=== PATIENT | female | born 1960 | race Hispanic/Latino ===

== ENCOUNTER → 2018-03-22 | Outpatient (CLI) | payer OTHER, MEDICARE | END | disposition home or self-care (01) | LOC: RAH 08:39 | PROVIDERS: ATTEND Internal Medicine | DX: N28.1 Cyst of kidney, acquired (principal); R93.2 Abnormal findings on diagnostic imaging of liver and biliary tract | CPT/HCPCS: 76700 ==

== ENCOUNTER → 2018-06-15 | Outpatient (CLI) | payer OTHER, MEDICARE | END | disposition home or self-care (01) | LOC: RAH 10:48 | PROVIDERS: ATTEND Internal Medicine | DX: R14.0 Abdominal distension (gaseous) (principal); K29.70 Gastritis, unspecified, without bleeding | CPT/HCPCS: 78264; A9541 ==

== ENCOUNTER → 2018-07-18 | Outpatient (CLI) | payer MEDICARE ==
[~2018-07-18] MED LIST: IOHEXOL 350 MG/ML 100ML INFUS..BTL IV ONE
== END | disposition home or self-care (01) ==
LOC: OIH 10:31
PROVIDERS: ATTEND Internal Medicine Gastroenterology
DX: K57.90 Diverticulosis of intestine, part unspecified, without perforation or abscess without bleeding (principal); M47.815 Spondylosis without myelopathy or radiculopathy, thoracolumbar region; N28.1 Cyst of kidney, acquired; N32.89 Other specified disorders of bladder; I70.90 Unspecified atherosclerosis
CPT/HCPCS: 74178; Q9967

== ENCOUNTER → 2024-01-09 | Outpatient (CLI) | payer OTHER | END | disposition home or self-care (01) | LOC: RAH 13:46 | PROVIDERS: ATTEND Internal Medicine Cardiovascular Disease | DX: Z13.6 Encounter for screening for cardiovascular disorders (principal) | CPT/HCPCS: 75571 ==

== ENCOUNTER → 2024-11-22 | Outpatient (CLI) | payer OTHER, MEDICAID ==
[2024-11-22] MEDS: REGADENOSON 0.4 MG/5 ML PF SYG IVP ONE (11:10)
== END | disposition home or self-care (01) ==
LOC: SHCH 08:40
PROVIDERS: ATTEND Internal Medicine Cardiovascular Disease
DX: I11.9 Hypertensive heart disease without heart failure (principal); R23.2 Flushing
CPT/HCPCS: 78452; 93017; J2785; A9500 ×2

== ENCOUNTER 2025-01-12 20:12 | Inpatient (IN) | payer OTHER, MEDICAID ==
[~2025-01-12] VITALS: Ht 147.3 cm; Wt 64.7 kg
--- NOTE | 2025-01-12 20:30 | EKG ---
[facility] Test Date: 2025-01-12 Test Time: 20:26:46 Pat Name: ANGELES CONRAD Department: ED Room: 421 Gender: F Junior Net Developer: [id number] : 1960 Requested By: DOROTHY BRASWELL Order Number: [id number] Reading MD: Tommy Doshi Measurements Intervals [place] Rate: 83 P: 42 VA: 138 QRS: 63 QRSD: 92 T: 29 QT: 370 QTc: 436 Interpretive Statements Sinus rhythm Nonspecific STT abnormality No previous ECG available for comparison Electronically Signed On 01-13-2025 11:08:36 CDT by Tommy Doshi Please click the below link to view image of tracing.
[2025-01-12 20:58] LABS: APPEARANCE,URINE CLEAR (CLEAR); GLUCOSE, URINE (UA) NEGATIVE (NEGATIVE); LEUKOCYTE ESTERASE ,URINE NEGATIVE Leu/uL (NEGATIVE); NITRATE,URINE NEGATIVE (NEGATIVE); OCCULT BLOOD,URINE NEGATIVE (NEGATIVE)
[2025-01-12 21:00] LABS: IMMATURE GRANULOCYTE ABSOLUTE 0.01 K/uL (0-1); NUCLEATED RED BLOOD CELLS 0.0 % (0.0-0.19); PLATELET COUNT (AUTO) 235 K/uL (130-400); RED BLOOD CELL COUNT(AUTO) 4.20 MIL/uL (4.00-5.50); RED CELL DISTRIBUTION WIDTH 12.5 % (11.0-15.5); WHITE BLOOD COUNT (AUTO) 6.7 K/uL (4.8-10.8)
[2025-01-12 21:07] LABS: ADD UA MICROSCOPIC NO
[2025-01-12 21:11] LABS: CREATININE 1.0 mg/dL (0.5-1.0); GLOMERULAR FILTR. RATE CALC 63.0 mL/min (>90); GLUCOSE,RANDOM 106.0 mg/dL (70-105); SODIUM SERUM 141.0 mmol/L (136-145); UREA NITROGEN, BLOOD 23.0 mg/dL (7-18)
[2025-01-12 21:20] LABS: ASPARTATE AMINOTRANSFERASE 24.0 U/L (10-37); CREATINE KINASE, TOTAL 65.0 U/L (21-232); TOTAL PROTEIN, SERUM 6.7 g/dL (6.0-8.3)
[2025-01-12] MEDS: 0.9% NACL 500ML IV.SOLN 500 ML IV ONE (21:23)
[2025-01-12] MEDS ORDERED: IOHEXOL-350 75 ML VIAL IV ONE (21:48)
--- NOTE | 2025-01-12 22:47 | HMCIMG ---
EXAM: CT Abdomen and Pelvis with IV Contrast CLINICAL HISTORY: The patient presents with right lower quadrant abdominal pain. TECHNIQUE: Axial computed tomography images of the abdomen and pelvis with intravenous contrast. CONTRAST: Administered intravenously. COMPARISON: Compared to prior CT abdomen and pelvis dated July 18, 2018. FINDINGS: LUNG BASES: The lung bases appear clear. No pleural effusions are seen. LIVER: The liver is enlarged measuring approximately 17.4 cm in craniocaudal span. A subcapsular calcified granuloma measuring 0.5 cm is seen in the right lobe. GALLBLADDER AND BILE DUCTS: The gallbladder appears within normal limits. No radioopaque gallstones are seen. No biliary ductal dilatation is evident. PANCREAS: Unremarkable. SPLEEN: Unremarkable. ADRENAL GLANDS: Unremarkable. KIDNEYS, URETERS, AND BLADDER: There is a left renal cyst in the interpolar region measuring 1.2 x 1.2 x 1.2 cm. No hydronephrosis or hydroureter. 0.3 cm calculus in the lower calyx of the right kidney. The urinary bladder is incompletely distended at the time of examination, limiting evaluation for wall thickening. In the appropriate clinical setting, mild cystitis cannot be excluded. STOMACH AND BOWEL: Colonic diverticulosis without evidence of diverticulitis. Unremarkable appearance of the stomach and small bowel. No evidence of bowel obstruction. No evidence suggesting enteritis or colitis. APPENDIX: The appendix appears thickened measuring approximately 1.2 cm with an appendicolith at the base measuring approximately 0.6 cm, along with minimal periappendiceal fat stranding, concerning for acute appendicitis. PERITONEUM: No free fluid. No free air. LYMPH NODES: No lymphadenopathy is evident. REPRODUCTIVE: The uterus and both ovaries are unremarkable. VASCULATURE: No evidence of abdominal aortic aneurysm. BONES: Multilevel mild degenerative changes in the spine. No acute osseous pathology is evident. IMPRESSION: Acute appendicitis is evident. This is a new finding compared to the previous CT dated 07/18/2018. The remaining findings are grossly unchanged. Hepatomegaly with a subcapsular hepatic calcified granuloma in the right lobe. Non-obstructive right renal calculus. Left renal interpolar cyst. Colonic diverticulosis without diverticulitis. Incompletely distended urinary bladder; cystitis cannot be excluded. Recommend clinical correlation. /[employer]
--- NOTE | 2025-01-12 23:07 | NUR ---
TRANSFERED CARE TO [facility] AT THIS TIME
--- NOTE | 2025-01-12 23:12 | HP ---
History of Present Illness Reason for Visit: abdominal pain History of Present Illness Ms. Chase is a 64-year-old female that was seen and examined today on 01/12/2025. Patient is a good historian of personal health Patient reports that she came to the emergency department with a chief complaint of abdominal pain. Onset was three days ago. Location is right lower quadrant and right upper quadrant. Duration is on and off. Character is described as, initially was like burning and over the last three days as progressed into cramping. There was no alleviating factors. Symptoms are aggravated with movement. Patient reports associated nausea without vomiting. Today in the emergency department labs are unremarkable, CT of abdomen and pelvis shows acute appendicitis. Emergency room physician consulted general surgeon on-call, Dr. Alexandra who requested patient be admitted under hospitalist service. Past Medical History ADDITIONAL PAST MEDICAL HISTORY: [Hypertension] SOCIAL HISTORY: [Negative for smoking, alcohol use, drug use. Patient lives with the mother, Crystal Will. Patient is typically independent of all her ADLs. Patient denies difficulty paying her bills.] SURGICAL HISTORY: [BTL, BTL reversal, section x2] Review of Systems General: No Fever, No Chills, No Night Sweats, No Fatigue, No Malaise, No Appetite, No Other HEENT: No Head Aches, No Visual Changes, No Eye Pain, No Ear Pain, No Dysphasia, No Sinus Congestion, No Post Nasal Drip, No Sore Throat, No Other Pulmonary: No Dyspnea, No Cough, No Pleuritic Chest Pain, No Other Cardiovascular: No: Chest Pain, Palpitations, Orthopnea, Paroxysmal Noc. Dyspnea, Edema, Lt Headedness, Other Gastrointestinal: Nausea, Abdominal Pain; No: Vomiting, Diarrhea, Constipation, Melena, Hematochezia, Other Genitourinary: No Dysuria, No Frequency, No Incontinence, No Hematuria, No Re tention, No Other Musculoskeletal: No: other, neck pain, shoulder pain, arm pain, back pain, hand pain, leg pain, foot pain Skin: No Urticaria, No Rash, No Other Neurological: No: Weakness, Numbness, Incoordination, Change in speech, Confusion, Seizures, Other Allergies: Coded Allergies: No Known Allergies (Unverified Allergy, Unknown, 01/12/25) No Active Prescriptions or Reported Meds Exam Vital Signs Vital Signs Date Time Temp Pulse Resp B/P (MAP) Pulse Ox O2 Delivery O2 Flow Rate FiO2 01/12/25 20:13 97.7 86 16 132/77 98 Room Air General Appearance: Alert, Oriented X3, Cooperative, No acute distress HEENT: Atraumatic, PERRLA, EOMI Respiratory: Clear to auscultation, Normal air movement, NL respiratory effort Cardiovascular: Regular rate, Regular rhythm, Normal S1, Normal S2 Abdominal: Normal bowel sounds, Soft, Other (Positive right lower quadrant tenderness) Extremities: No edema Skin: No significant lesion Neuro: Normal gait, Normal speech, Strength at 5/5 X4 ext, Sensation intact, Cranial nerves 3-12 NL Psych/Mental Status: Mental status NL, Mood NL, Thoughts/Content NL Assessment/Plan ASSESSMENT: [ Acute appendicitis, POA Hypertension] PLAN: [ Admit patient to medical floor as inpatient status. Patient will be followed by General surgery Service, Dr. Alexandra Keep patient NPO Check preprocedure labs, CBC, BMP, magnesium, phosphorus, PTT, UA, type and screen, EKG, CXR IV fluid maintenance therapy lactated Ringer's 75 mL/HR Empiric antibiotic therapy with Zosyn As needed analgesia with morphine Consider restarting home medications once they have been reconciled and patient is no longer NPO At time of admission home medications not been reconciled. For now: Hydralazine 10 mg IV every 4 hours for systolic blood pressure greater than 160 mmHg GI prophylaxis, famotidine DVT prophylaxis, Marcos's and SCDs avoid anticoagulation at this time due to impending surgical evaluation ADVANCED CARE PLANNING 1. Which of the following were discussed? Hospice Care - Yes Therapeutic options - yes Advance Directives - Yes - patient states he does not have any advance directives in place at this time, however her mother can make decisions for her if she becomes unable Other discussions - patient wishes to remain a full code 2. Discussed with who? Patient 3. Voluntary nature of this service was explained to the patient? Yes 4. Amount of time spent - ___16 minutes____ 5. Reviewed by Physician? (if this service was performed by NPP) Yes This document was generated in part using voice recognition software, occasional wrong word or sound alike substitutions may have occurred due to the inherent limitations of voice recognition software. Read the chart carefully and recognize using context, where the substitutions have occurred. Although every effort was made to edit the content, service station operator and typing errors may occur ATTESTATION BY PHYSICIAN I have seen and examined the patient. I reviewed the documentation, medical decision making, and treatment plan as noted by the mid-level provider above. I agree with the findings and plan of care. JOANNE MERRITT [facility] Jan 12, 2025 23:11
[2025-01-12] MEDS: LACTATED RINGERS 1000ML 1,000 ML IV SCH (23:30)
[2025-01-12] MEDS: ZOSYN 3.375GM +NS 50ML IV SCH (23:30)
--- NOTE | 2025-01-12 23:55 | ERN ---
ED Note History of Present Illness Stated Complaint: ACUTE APPENDICITIS Chief Complaint: Abdominal Pain Time Seen by MD: 20:13 Time Seen by Midlevel: 20:13 Dictation: The patient is a 64-year-old female with a history of hypertension, who presents to the emergency department with complaints of right upper and right lower abdominal pain onset . Patient reports nonbloody diarrhea yesterday. Denies any nausea or vomiting. Denies any fevers. Patient reports that she was picking up some heavy objects on and thinks that is what caused her pain. Reports she was seen by her primary doctor on Tuesday and told her it was muscular pain but patient reports no improving in pain. Allergies: Coded Allergies: No Known Allergies (Unverified Allergy, Unknown, 01/12/25) Past Medical History Past Medical History: Hypertension Surgical History: BTL, RN Note Reviewed/Agreed w/PFSH: Yes Review of System Dictation Constitutional: Negative for fever,chills, and weight loss Eyes: Negative for injury, pain,redness, and discharge ENT: Negative for injury,pain or swelling Cardiovascular: Negative for chest pain, palpitations, and edema Respiratory: Negative for shortness of breath, cough, and wheezing, Abdomen/GI: Negative for nausea, vomiting, and constipation positive for abdominal pain, diarrhea Back: Negative for injury and pain : Negative for injury, bleeding and discharge MS/Extremity: Negative for injury and deformity Skin: Negative for rash, and discoloration Neuro: Negative for headache, weakness, numbness, tingling, and seizure Psych: Negative for suicide ideation, homicidal ideation, and hallucinations Initial Vital Sign VS Vital Signs Date Time Temp Pulse Resp B/P (MAP) Pulse Ox O2 Delivery O2 Flow Rate FiO2 01/12/25 20:13 97.7 86 16 132/77 98 Room Air Physical Exam Dictation Vital Signs reviewed General Appearance: Alert, oriented x 3, no acute distress, well developed, nourished. Head and Face: non-traumatic. Eyes: PERRL, pink conjunctivas, eyelid no trauma, anterior chamber with arcus senilis. Ears: Pinnas intact and no signs of trauma or erythema ear canals clear and no discharge TM no erythema Nose: No discharge, no bleeding. Oropharynx: Mouth normal, tongue pink. pharynx clear,no erythema, tonsils no exudates, no abscesses noted, mucous membrane moist Neck: Supple, non-tender, no thyromegaly, no masses, no JVD, no bruits Breast:Deferred Chest:No tenderness, no crepitus, no paradoxical movement, no retractions Lungs:Clear, well-ventilated, symmetric, no rales, no wheezing, no rhonchi, no stridor, good breath sounds bilaterally Heart: Regular rate, regular rhythm, no murmur, no gallops Vascular: no peripheral edema, Abdomen: Soft, positive bowel sounds, nondistended, no guarding, Right lower quadrant tenderness, no rebound, no masses no hepatomegaly, no s plenomegaly, no Dover's sign, no hernias. Rectal: Deferred Genital: Deferred Neurological: Normal speech, motor function intact, sensory function intact Musculoskeletal: Neck nontender, full range of motion, back nontender, full range of motion, Extremities: nontender, full range of motion Skin: Color pink, dry, no turgor, no rash, no lacerations, no abrasions, no contusions. Lymphatic: Deferred Results (Laboratory/Radiology) Laboratory/Radiology Laboratory Tests Test 01/12/25 20:22 01/12/25 20:28 Urine Color LIGHT-YELLOW (YELLOW) Urine Appearance CLEAR (CLEAR) Urine pH 6.0 (5.0-8.0) Urine Specific [place] 1.024 (1.001-1.031) Urine Protein NEGATIVE mg/dL (NEGATIVE) Urine Glucose (UA) NEGATIVE mg/dL (NEGATIVE) Urine Ketones NEGATIVE mg/dL (NEGATIVE) Urine Occult Blood NEGATIVE (NEGATIVE) Urine Nitrate NEGATIVE (NEGATIVE) Urine Bilirubin NEGATIVE mg/dL (NEGATIVE) Urine Urobilinogen 0.2 mg/dL (0.2-1.0) Urine Leukocyte Esterase NEGATIVE Liss/uL White Blood Count 6.7 K/uL (4.8-10.8) Red Blood Count 4.20 MIL/uL (4.00-5.50) Hemoglobin 13.2 g/dL (12.0-16.0) Hematocrit 39.9 % (36-48) Mean Corpuscular Volume 95.0 fL (79-99) Mean Corpuscular Hemoglobin 31.4 pg (27.0-33.0) Mean Corpuscular Hemoglobin Concent 33.1 g/dL (32.0-36.0) Red Cell Distribution Width 12.5 % (11.0-15.5) Platelet Count 235 K/uL (130-400) Mean Platelet Volume 11.5 fL (7.5-10.5) H Immature Granulocyte % (Auto) 0.1 % (0-1) Neutrophils (%) (Auto) 56.6 % (40.0-77.0) Lymphocytes (%) (Auto) 31.7 % (21.0-51.0) Monocytes (%) (Auto) 6.6 % (3.0-13.0) Eosinophils (%) (Auto) 4.0 % (0.0-8.0) Basophils (%) (Auto) 1.0 % (0.0-5.0) Neutrophils # (Auto) 3.8 K/uL (1.8-7.7) Lymphocytes # (Auto) 2.1 K/uL (1.0-4.8) Monocytes # (Auto) 0.4 K/uL (0.1-1.0) Eosinophils # (Auto) 0.27 K/uL (0.00-0.70) Basophils # (Auto) 0.07 K/uL (0.00-0.20) Absolute Immature Granulocyte (auto 0.01 K/uL (0-1) Nucleated Red Blood Cells 0.0 % (0.0-0.19) Sodium Level 141 mmol/L (136-145) Potassium Level 3.9 mmol/L (3.5-5.1) Chloride Level 106 mmol/L (101-111) Carbon Dioxide Level 26 mmol/L (21-32) Blood Urea Nitrogen 23 mg/dL (7-18) H Creatinine 1.0 mg/dL (0.5-1.0) Glomerular Filtration Rate Calc 63 mL/min (>90) Random Glucose 106 mg/dL (70-105) H Total Calcium 8.9 mg/dL (8.5-10.1) Total Bilirubin 0.3 mg/dL (0.2-1.0) Direct Bilirubin 0.1 mg/dL (0.0-0.3) Aspartate Amino Transf (AST/SGOT) 24 U/L (10-37) Alanine Aminotransferase (ALT/SGPT) 36 U/L (12-78) Alkaline Phosphatase 135 U/L (50-136) Total Creatine Kinase 65 U/L (21-232) # Troponin I High Sensitivity 4 ng/L (4-50) Total Protein 6.7 g/dL (6.0-8.3) Albumin 3.5 g/dL (3.5-5.0) Lipase 35 U/L (16-77) REASON: Abdominal Pain, rlq ORDERING PHYSICIAN: DOROTHY BRASWELL PROCEDURE: ABD PEL W - CT ABDOMEN/PELVIS W/CONTRAST ADDENDUM REPORT ADDENDUM: Results were shared by telephone at 11:52pm on 01/12/25 and acknowledged by Janis Arreola /[place] EXAM: CT Abdomen and Pelvis with IV Contrast CLINICAL HISTORY: The patient presents with right lower quadrant abdominal pain. TECHNIQUE: Axial computed tomography images of the abdomen and pelvis with intravenous contrast. CONTRAST: Administered intravenously. COMPARISON: Compared to prior CT abdomen and pelvis dated July 18, 2018. FINDINGS: LUNG BASES: The lung bases appear clear. No pleural effusions are seen. LIVER: The liver is enlarged measuring approximately 17.4 cm in craniocaudal span. A subcapsular calcified granuloma measuring 0.5 cm is seen in the right lobe. GALLBLADDER AND BILE DUCTS: The gallbladder appears within normal limits. No radioopaque gallstones are seen. No biliary ductal dilatation is evident. PANCREAS: Unremarkable. SPLEEN: Unremarkable. ADRENAL GLANDS: Unremarkable. KIDNEYS, URETERS, AND BLADDER: There is a left renal cyst in the interpolar region measuring 1.2 x 1.2 x 1.2 cm. No hydronephrosis or hydroureter. 0.3 cm calculus in the lower calyx of the right kidney. The urinary bladder is incompletely distended at the time of examination, limiting evaluation for wall thickening. In the appropriate clinical setting, mild cystitis cannot be excluded. STOMACH AND BOWEL: Colonic diverticulosis without evidence of diverticulitis. Unremarkable appearance of the stomach and small bowel. No evidence of bowel obstruction. No evidence suggesting enteritis or colitis. APPENDIX: The appendix appears thickened measuring approximately 1.2 cm with an appendicolith at the base measuring approximately 0.6 cm, along with minimal periappendiceal fat stranding, concerning for acute appendicitis. PERITONEUM: No free fluid. No free air. LYMPH NODES: No lymphadenopathy is evident. REPRODUCTIVE: The uterus and both ovaries are unremarkable. VASCULATURE: No evidence of abdominal aortic aneurysm. BONES: Multilevel mild degenerative changes in the spine. No acute osseous pathology is evident. IMPRESSION: Acute appendicitis is evident. This is a new finding compared to the previous CT dated 07/18/2018. The remaining findings are grossly unchanged. Hepatomegaly with a subcapsular hepatic calcified granuloma in the right lobe. Non-obstructive right renal calculus. Left renal interpolar cyst. Colonic diverticulosis without diverticulitis. Incompletely distended urinary bladder; cystitis cannot be excluded. Recommend clinical correlation. /[employer] [facility] Reviewed?: Yes EKG: (+) rhythm (Sinus rhythm) EKG Comment: Date:01/12/2025 Time:2025 Ventricular rate:83 TN interval:138 QRS duration:92 QT/QTc:370/436 EKG interpretation: Sinus rhythm Reviewed by ED Attending no STEMI ED Course ED Course Orders Procedure Category Date Status Time Cbc With Differential LAB 01/12/25 Complete 20:21 Troponin I High LAB 01/12/25 Complete Sensitivity 20:21 Urinalysis Profile LAB 01/12/25 Complete 20:21 12 Lead Ekg Tracing- EKG 01/12/25 Complete Technical 20:21 Creatine Kinase, Total LAB 01/12/25 Complete 20:21 Lipase LAB 01/12/25 Complete 20:21 Basic Metabolic Panel LAB 01/12/25 Complete 20:21 Hepatic Function Panel LAB 01/12/25 Complete 20:21 Ct Abdomen/Pelvis CT 01/12/25 Resulted W/Contrast 21:16 0.9% Nacl 500ml PHA 01/12/25 Complete Iv.Soln (Ns 500ml 21:30 Iohexol (Omnipaque) PHA 01/12/25 Complete 21:48 Obtain Consent For: CPOE 01/12/25 Transmitted 23:00 General Surgery CONPHYSVC 01/12/25 Transmitted Consult 23:07 Keep Patient Npo CPOE 01/12/25 Transmitted 23:07 Basic Metabolic Panel LAB 01/13/25 In Process 04:00 Cbc With Differential LAB 01/13/25 In Process 04:00 Magnesium LAB 01/13/25 In Process 04:00 Phosphorus LAB 01/13/25 In Process 04:00 Pt And Ptt LAB 01/13/25 In Process 04:00 Type And Screen BBK 01/13/25 In Process 04:00 Blood Cult SOHEILA 01/12/25 Logged 23:07 Activity: Ad Kajal CPOE 01/12/25 Transmitted 23:07 Apply Knee High Teds CPOE 01/12/25 Transmitted 23:07 Apply Scds CPOE 01/12/25 Transmitted 23:07 Condition: CPOE 01/12/25 Transmitted 23:07 Nurse To Enter Home CPOE 01/12/25 Transmitted Medication 23:07 Oxygen By Nc/Pulse Ox CPOE 01/12/25 Transmitted 23:07 Vital Signs(Adult CPOE 01/12/25 Transmitted Hospitalist) 23:07 Acetaminophen 650mg PHA 01/12/25 In Process Supp (Tylenol 650mg 23:30 Ondansetron 4mg Inj PHA 01/12/25 In Process (Zofran 4mg Inj) 23:30 Lactated Ringers PHA 01/12/25 In Process 1000ml (Lactated 23:30 Hydralazine 20mg Inj PHA 01/12/25 In Process (Apresoline 20mg In 23:30 Famotidine 20mg Vial PHA 01/13/25 In Process (Pepcid 20mg Vial) 09:00 Zosyn 3.375gm+Ns 50ml PHA 01/12/25 In Process (Zosyn 3.375gm+Ns 23:30 Chest 1vw RAD 01/12/25 Logged 23:07 Morphine 2mg Syg PHA 01/12/25 In Process (Morphine 2mg Syg) 23:30 Admit Orders ADM 01/12/25 Transmitted 23:34 Current Medications Medications (Trade) Dose Ordered Sig/Kennedy Route PRN Reason Start Time Stop Time Status Last Admin Dose Admin Iohexol (Omnipaque) 75 ml STK-MED ONCE IV 01/12/25 21:48 01/12/25 21:54 DC Sodium Chloride 500 ml @ 0 mls/hr ONCE ONCE IV 01/12/25 21:30 01/12/25 21:31 DC 01/12/25 21:23 Vital Signs Date Time Temp Pulse Resp B/P (MAP) Pulse Ox O2 Delivery O2 Flow Rate FiO2 01/12/25 20:13 97.7 86 16 132/77 98 Room Air Medical Decision Making [facility] MDM: The patient is a 64-year-old female with a history of hypertension, C- section who presents to the emergency department with complaints of right upper and right lower abdominal pain onset . Patient reports nonbloody diarrhea yesterday. Denies any nausea or vomiting. Denies any fevers. Patient reports that she was picking up some heavy objects on and thinks that is what caused her pain. Reports she was seen by her primary doctor on Tuesday and told her it was muscular pain but patient reports no improving in pain. CBC showed no leukocytosis, no anemia, chemistry showed no electrolyte imbalance, negative troponin, negative lipase, normal renal function, urinalysis unremarkable CT abdomen showed acute appendicitis, hepatomegaly nonobstructed right renal calculus. General surgery Dr. Alexandra was consulted for acute appendicitis. Patient will be admitted for further evaluation and treatment. Differential diagnosis: Abdominal wall pain, appendicitis, cholecystitis, ACS, gastritis Comorbidities: Hypertension Tests considered and not ordered secondary to shared decision making include: none Previous outside records reviewed: none Risk of complication and/or morbidity or mortality of patient management: The patient meets criteria for admission. Need for emergency major/minor surgery: No There are no social concerns with this patient. I independently interpreted the tests I ordered (labs, urinalysis, etc.). I discussed the case with the hospitalist for admission. Jose RUBIO who accepts admission I discussed the case with the following specialists: Dr. Nitin Alexandra who accepts consult Historian: sherri. I independently interpreted imaging studies and EKGs that I ordered (US, CT, XR, EKG, etc.). External chart review: none. Medical management and examination interpretation discussions were had by me with other qualified healthcare professionals as indicated for the patient's care. DX & DISP Disposition: Inpatient Decision to Admit Date: Jan 12, 2025 Decision to Admit Time: 23:55 Departure Impression: Primary Impression: Acute appendicitis Condition: Stable Referrals: EMILE OLIVO MD (PCP) I have reviewed the case, and I agree with, Diagnosis and Plan DOROTHY BRASWELL Jan 12, 2025 23:55
[2025-01-13] VITALS (29 sets, daily range): BP systolic 112–169; BP diastolic 59–87; PULSE 57–82; RESP 15–19; TEMP 97.3–98.2; O2SAT 95–98
--- NOTE | 2025-01-13 00:30 | NUR ---
ADMIT PT ADMITTED TO ROOM 421, AAOX3. DENIES ANY ABDOMINAL PAINS AT THIS TIME. ADMISSION CARE DONE. PLACED IN BED COMFORTABLY. KEPT NPO FOR SX. SCD'S PLACED TO BLE. ADMISSION DATA BASE COMPLETED. PT CLAIMS SHE DOES NOT TAKE ANY MEDS AT HOME BESIDES OCCASIONAL TYLENOL FOR PAIN. ORIENTED TO ROOM AND UNIT. IN FOR MORE CARE AND MANAGEMENT. Addendum: 01/13/25 at 0206 by MOISES PAUL RN RN Amended: Links added.
[2025-01-13 02:36] LABS: IMMATURE GRANULOCYTE ABSOLUTE 0.01 K/uL (0-1); NUCLEATED RED BLOOD CELLS 0.0 % (0.0-0.19); PLATELET COUNT (AUTO) 211 K/uL (130-400); RED BLOOD CELL COUNT(AUTO) 3.99 MIL/uL (4.00-5.50); RED CELL DISTRIBUTION WIDTH 12.4 % (11.0-15.5); WHITE BLOOD COUNT (AUTO) 6.7 K/uL (4.8-10.8)
--- NOTE | 2025-01-13 02:40 | NUR ---
CONSENT HORN PLAYER IN TO DRAW BLOOD. CHARGE NURSE BRENT ASKED TO GET CONSENT FOR SX IN [place]. CONSENT SIGNED BY PT AND PLACED IN CHART.
[2025-01-13 02:46] LABS: INR 1.04 (0.85-1.15)
[2025-01-13 02:47] LABS: CREATININE 0.8 mg/dL (0.5-1.0); GLOMERULAR FILTR. RATE CALC 83.0 mL/min (>90); GLUCOSE,RANDOM 113.0 mg/dL (70-105); PHOSPHORUS 3.6 mg/dL (2.5-4.9); SODIUM SERUM 141.0 mmol/L (136-145); UREA NITROGEN, BLOOD 18.0 mg/dL (7-18)
--- NOTE | 2025-01-13 06:05 | NUR ---
MEDS AWAKENED PT FOR DUE MEDS. PT FRESHENED UP IN THE BATHROOM, REMOVED JEWELRY AND DENTURES. DUE MEDS ADMINISTERED. KEPT NPO FOR SX. FOR MORE CARE.
[2025-01-13] MEDS: FAMOTIDINE 20MG VIAL IV SCH (09:08)
--- NOTE | 2025-01-13 10:20 | NUR ---
PATIENT TAKEN DOWN FOR SURGERY. NO SIGNS OF DISTRESS NOTED. WILL GET THE ROOM READY FOR POST OP CARE.
[2025-01-13] MEDS ORDERED: MIDAZOLAM HCL 1 MG/ML 2ML VIAL ONE (11:16)
[2025-01-13] MEDS ORDERED: LIDOCAINE PF 100MG/5ML (2%) SYRINGE 5ML ONE (11:23)
--- NOTE | 2025-01-13 11:55 | CONS ---
GENERAL SURGERY CONSULTATION NOTE Date/Time Patient Seen: 01/13/2025 11:30 a.m. Requesting Physician: Hospitalist Reason for Consultation: Acute appendicitis History of Present Illness: 64-year-old female presents was admitted for acute appendicitis. She had a thr ee day history of worsening right lower quadrant abdominal pain. She has had some pain before that same area but thought it was constipation. She denies nausea, vomiting, fevers or chills. CT scan showed acute appendicitis that was not perforated but had a fecalith. Her white count was normal Past Medical History: Hypertension and fibromyalgia Past Surgical History: Two C-sections, tubal ligation and reversal of tubal ligation Family History: Noncontributory Social History: [Negative for smoking, alcohol use, drug use. Patient lives with the mother, Crystal Will. Patient is typically independent of all her ADLs. Patient denies difficulty paying her bills.] Current Medications Medications (Trade) Dose Ordered Sig/Kennedy Route Start Time Stop Time Status Last Admin Dose Admin Famotidine (Pepcid 20mg Vial) 20 mg DAILY IV 01/13/25 09:00 02/12/25 08:59 01/13/25 09:08 20 MG Lactated Ringer's 1,000 ml @ 75 mls/hr [id number] IV 01/12/25 23:30 02/11/25 23:29 01/12/25 23:30 75 MLS/HR Piperacillin Sod/ Tazobactam Sod (Zosyn 3.375gm+NS 50ml) 3.375 gm Q8H IV 01/12/25 23:30 01/22/25 23:29 01/13/25 06:05 3.375 GM Review of Systems: CONST: [No fever, fatigue, or weight changes.] EYES: [No recent vision problems.] ENT: [No congestion, ear pain, or sore throat.] C/V: [No chest pain, palpitations, or edema.] RESP: [No cough, congestion, wheezing or shortness of breath.] GI: [Positive for abdominal pain and constipation : [No incontinence or dysuria.] SKIN: [No rash.] NEURO: [No headache, focal numbness or weakness, dizziness, or seizures.] PSYCH: [No depression or anxiety.] HEME: [No abnormal bruising or bleeding.] LYMPH: [No swollen glands.] Physical Examination: GENERAL: [No acute distress.] HEAD: [Normal with no signs of head trauma.] EYES: [PERRLA, EOMI, conjunctiva and sclera normal.] ENT: [Hearing grossly intact, normal oropharynx.] NECK: [Supple without JVD. There is no tenderness, lymphadenopathy, or masses. No thyromegaly. Normal carotid upstrokes without bruits.] LUNGS: [Clear breath sounds bilaterally. There are right basilar rales one third of the way up the chest. No wheezes, or rhonchi.] HEART: [Normal rate and rhythm. Normal S1 and S2 without mumurs, gallop or rub.] VASC: [Peripheral pulses +2 bilaterally.] ABD: Soft, nondistended, right lower quadrant tenderness, no diffuse peritoneal signs : [Not examined] LYMPH: [No lymphadenopathy noted.] EXT: [No clubbing, cyanosis or edema.] SKIN: [No rashes or lesions noted.] NEURO: [Awake, alert, and oriented x3. No focal sensory or strength deficits noted.] Vital Signs (last 8hr) Date Time Temp Pulse Resp B/P (MAP) Pulse Ox O2 Delivery O2 Flow Rate FiO2 01/13/25 08:00 97.9 63 18 139/76 95 Room Air 01/13/25 08:00 95 Room Air* 0 21 01/13/25 04:00 97.5 59 16 134/78 99 Room Air 21 Laboratory: [ ] Hematology Labs: Test 01/13/25 02:18 Range/Units White Blood Count 6.7 4.8-10.8 K/uL Red Blood Count 3.99 L 4.00-5.50 MIL/uL Hemoglobin 12.8 12.0-16.0 g/dL Hematocrit 37.3 36-48 % Mean Corpuscular Volume 93.5 79-99 fL Mean Corpuscular Hemoglobin 32.1 27.0-33.0 pg Mean Corpuscular Hemoglobin Concent 34.3 32.0-36.0 g/dL Red Cell Distribution Width 12.4 11.0-15.5 % Platelet Count 211 130-400 K/uL Mean Platelet Volume 10.9 H 7.5-10.5 fL Immature Granulocyte % (Auto) 0.2 0-1 % Neutrophils (%) (Auto) 55.3 40.0-77.0 % Lymphocytes (%) (Auto) 33.3 21.0-51.0 % Monocytes (%) (Auto) 6.2 3.0-13.0 % Eosinophils (%) (Auto) 4.2 0.0-8.0 % Basophils (%) (Auto) 0.8 0.0-5.0 % Neutrophils # (Auto) 3.7 1.8-7.7 K/uL Lymphocytes # (Auto) 2.2 1.0-4.8 K/uL Monocytes # (Auto) 0.4 0.1-1.0 K/uL Eosinophils # (Auto) 0.28 0.00-0.70 K/uL Basophils # (Auto) 0.05 0.00-0.20 K/uL Absolute Immature Granulocyte (auto 0.01 0-1 K/uL Nucleated Red Blood Cells 0.0 0.0-0.19 % Chemistry Labs: Test 01/13/25 02:18 01/12/25 20:28 Range/Units Sodium Level 141 136-145 mmol/L Potassium Level 3.5 3.5-5.1 mmol/L Chloride Level 108 101-111 mmol/L Carbon Dioxide Level 25 21-32 mmol/L Blood Urea Nitrogen 18 7-18 mg/dL Creatinine 0.8 0.5-1.0 mg/dL Glomerular Filtration Rate Calc 83 >90 mL/min Random Glucose 113 H 70-105 mg/dL Total Calcium 8.5 8.5-10.1 mg/dL Phosphorus Level 3.6 2.5-4.9 mg/dL Magnesium Level 2.20 1.80-2.40 mg/dL Total Bilirubin 0.3 0.2-1.0 mg/dL Direct Bilirubin 0.1 0.0-0.3 mg/dL Aspartate Amino Transf (AST/SGOT) 24 10-37 U/L Alanine Aminotransferase (ALT/SGPT) 36 12-78 U/L Alkaline Phosphatase 135 50-136 U/L Total Creatine Kinase 65 # 21-232 U/L Troponin I High Sensitivity 4 4-50 ng/L Total Protein 6.7 6.0-8.3 g/dL Albumin 3.5 3.5-5.0 g/dL Lipase 35 16-77 U/L Coagulation Labs: Test 01/13/25 02:18 Range/Units Prothrombin Time 11.0 9.6-11.6 SEC Prothromb Time International Ratio 1.04 0.85-1.15 Activated Partial Thromboplast Time 30.1 26.3-35.5 SEC Diagnostics / Radiology: CT scan of the abdomen and pelvis showed Acute appendicitis with fecalith (no perforation) Assessment: 64-year-old with acute non perforated appendicitis Plan: NPO IV antibiotics We will take to the operating room now for laparoscopic appendectomy. I discussed the risks of the procedure including bleeding, infection, recurrent appendicitis, injury to surrounding viscera and possible open procedure ANKIT CAMACHO MD Jan 13, 2025 11:55
--- NOTE | 2025-01-13 12:25 | PN ---
[facility] PROGRESS NOTE Date of Service: Jan 13, 2025 Time of Service: 12:23 SUBJECTIVE: [ ] Patient reports that she came to the emergency department with a chief complaint of abdominal pain. Onset was three days ago. Location is right lower quadrant and right upper quadrant. Duration is on and off. Character is described as, initially was like burning and over the last three days as progressed into cramping. There was no alleviating factors. Symptoms are aggravated with movement. Patient reports associated nausea without vomiting. Today in the emergency department labs are unremarkable, CT of abdomen and pelvis shows acute appendicitis. Emergency room physician consulted general surgeon on-call, Dr. Alexandra who requested patient be admitted under hospitalist service. 01/13/25 patient is scheduled for appendectomy today. Encourage early ambulation and deep breathing exercise postprocedure. Denied chest pain or shortness for breath. REVIEW OF SYSTEMS CONSTITUTIONAL: Denies fevers, chills, or night sweats. No unintentional weight loss reported. NEUROLOGICAL: Denies headache, amaurosis fugax, motor weakness, sensory deficit, vertigo/spinning sensation, gait abnormalities, or tremors. ENT: No hearing loss, otalgia, otorrhea, rhinitis, rhinorrhea, hoarseness, or sore throat. CARDIOVASCULAR: Denies any exertional angina, dyspnea on exertion, orthopnea, paroxysmal nocturnal dyspnea, palpitations, life-threatening arrhythmias, claudication. PULMONARY: Denies any shortness of breath, cough, phlegm/sputum, hemoptysis, pleuritic chest pain. SLEEP: Denies morning headaches, daytime somnolence or napping. Denies difficulty falling asleep, staying asleep, waking from sleep. Denies knowledge of snoring. GASTROINTESTINAL: Denies any type of dysphagia to either liquids or solids. Denies nausea, vomiting, pyrosis, early satiety, abdominal pain, diarrhea, constipation, or changes in stool consistency or caliber. Denies coffee-ground emesis, hematemesis, hematochezia, or melanotic stools. GENITOURINARY: Denies frequency, urgency, nocturia, hematuria or incontinence (Storage/Irritative symptoms.) Low urinary stream, straining to void, urinary intermittency or hesitancy, splitting of the voiding stream, terminal dribbling. ENDOCRINOLOGIC: Denies polyuria, polydipsia, polyphagia or heat/cold intolerances. HEMATOLOGIC: Denies thrombophilia/previous clots, or coagulopathy/bleeding disorders. ONCOLOGIC: Denies personal history of malignancy. DERMATOLOGIC: Denies rashes or pruritus. PSYCHIATRIC: Denies any suicidal or homicidal ideation. Denies hallucinations. PHYSICAL EXAM GENERAL APPEARANCE: The patient is awake, alert, and oriented, in no acute cardiopulmonary distress. NEUROLOGICAL: Cranial nerves II-XII grossly intact. Motor is 5/5 in bilateral upper and lower extremities proximal to distal. No sensory deficits. HEENT: Face is symmetric. Pupils are equal and reactive. Extraocular movements are intact. NECK: Supple. No JVD. No thyromegaly. No submental, submandibular, pre- /postauricular, occipital or supraclavicular lymphadenopathy. CHEST: Normal chest expansion. No Telemetry. LUNGS: Absence of any rales, rhonchi or any wheezing. CARDIOVASCULAR: Regular. S1 and S2 normal. No appreciable rubs, murmurs or gallops. ABDOMEN: Soft, nontender, and nondistended. There is no rebound, voluntary guarding, or rigidity. : Deferred. No Nuñez. EXTREMITIES: Non-edematous and not cyanotic. No clubbing. Good capillary refill. SKIN: No skin breakdown. Vital Signs (last 8hr) Date Time Temp Pulse Resp B/P (MAP) Pulse Ox O2 Delivery O2 Flow Rate FiO2 01/13/25 08:00 97.9 63 18 139/76 95 Room Air 01/13/25 08:00 95 Room Air* 0 21 LABS: Laboratory: Test 01/13/25 02:18 01/12/25 20:28 01/12/25 20:22 Range/Units White Blood Count 6.7 4.8-10.8 K/uL Red Blood Count 3.99 L 4.00-5.50 MIL/uL Hemoglobin 12.8 12.0-16.0 g/dL Hematocrit 37.3 36-48 % Mean Corpuscular Volume 93.5 79-99 fL Mean Corpuscular Hemoglobin 32.1 27.0-33.0 pg Mean Corpuscular Hemoglobin Concent 34.3 32.0-36.0 g/dL Red Cell Distribution Width 12.4 11.0-15.5 % Platelet Count 211 130-400 K/uL Mean Platelet Volume 10.9 H 7.5-10.5 fL Immature Granulocyte % (Auto) 0.2 0-1 % Neutrophils (%) (Auto) 55.3 40.0-77.0 % Lymphocytes (%) (Auto) 33.3 21.0-51.0 % Monocytes (%) (Auto) 6.2 3.0-13.0 % Eosinophils (%) (Auto) 4.2 0.0-8.0 % Basophils (%) (Auto) 0.8 0.0-5.0 % Neutrophils # (Auto) 3.7 1.8-7.7 K/uL Lymphocytes # (Auto) 2.2 1.0-4.8 K/uL Monocytes # (Auto) 0.4 0.1-1.0 K/uL Eosinophils # (Auto) 0.28 0.00-0.70 K/uL Basophils # (Auto) 0.05 0.00-0.20 K/uL Absolute Immature Granulocyte (auto 0.01 0-1 K/uL Nucleated Red Blood Cells 0.0 0.0-0.19 % Prothrombin Time 11.0 9.6-11.6 SEC Prothromb Time International Ratio 1.04 0.85-1.15 Activated Partial Thromboplast Time 30.1 26.3-35.5 SEC Sodium Level 141 136-145 mmol/L Potassium Level 3.5 3.5-5.1 mmol/L Chloride Level 108 101-111 mmol/L Carbon Dioxide Level 25 21-32 mmol/L Blood Urea Nitrogen 18 7-18 mg/dL Creatinine 0.8 0.5-1.0 mg/dL Glomerular Filtration Rate Calc 83 >90 mL/min Random Glucose 113 H 70-105 mg/dL Total Calcium 8.5 8.5-10.1 mg/dL Phosphorus Level 3.6 2.5-4.9 mg/dL Magnesium Level 2.20 1.80-2.40 mg/dL Total Bilirubin 0.3 0.2-1.0 mg/dL Direct Bilirubin 0.1 0.0-0.3 mg/dL Aspartate Amino Transf (AST/SGOT) 24 10-37 U/L Alanine Aminotransferase (ALT/SGPT) 36 12-78 U/L Alkaline Phosphatase 135 50-136 U/L Total Creatine Kinase 65 # 21-232 U/L Troponin I High Sensitivity 4 4-50 ng/L Total Protein 6.7 6.0-8.3 g/dL Albumin 3.5 3.5-5.0 g/dL Lipase 35 16-77 U/L Urine Color LIGHT-YELLOW YELLOW Urine Appearance CLEAR CLEAR Urine pH 6.0 5.0-8.0 Urine Specific [place] 1.024 1.001-1.031 Urine Protein NEGATIVE NEGATIVE mg/dL Urine Glucose (UA) NEGATIVE NEGATIVE mg/dL Urine Ketones NEGATIVE NEGATIVE mg/dL Urine Occult Blood NEGATIVE NEGATIVE Urine Nitrate NEGATIVE NEGATIVE Urine Bilirubin NEGATIVE NEGATIVE mg/dL Urine Urobilinogen 0.2 0.2-1.0 mg/dL Urine Leukocyte Esterase NEGATIVE NEGATIVE Liss/uL Current Medications Medications (Trade) Dose Ordered Sig/Kennedy Route PRN Reason Start Time Stop Time Status Last Admin Dose Admin Acetaminophen (TYLenol 650MG SUPPOSITORY) 650 mg Q6H PRN RC MILD PAIN (1-3) 01/12/25 23:30 02/11/25 23:29 Famotidine (Pepcid 20mg Vial) 20 mg DAILY IV 01/13/25 09:00 02/12/25 08:59 01/13/25 09:08 20 MG Hydralazine HCl (APRESOLine 20MG INJ) 10 mg Q6H PRN IV For:SBP above 160;DBP above 90 01/12/25 23:30 02/11/25 23:29 Lactated Ringer's 1,000 ml @ 75 mls/hr [id number] IV 01/12/25 23:30 02/11/25 23:29 01/12/25 23:30 75 MLS/HR Morphine Sulfate (morPHINE 2MG SYG) 2 mg Q4H PRN IVP SEVERE PAIN (7-10) 01/12/25 23:30 01/19/25 23:29 Ondansetron HCl (zoFRAN 4MG INJ) 4 mg Q6H PRN IV NAUSEA/VOMITING 01/12/25 23:30 02/11/25 23:29 Piperacillin Sod/ Tazobactam Sod (Zosyn 3.375gm+NS 50ml) 3.375 gm Q8H IV 01/12/25 23:30 01/22/25 23:29 01/13/25 06:05 3.375 GM DIAGNOSTICS / RADIOLOGY: [ ] ASSESSMENT: Acute appendicitis, POA Hypertension] PLAN: [ ] Admit patient to medical floor as inpatient status. Consulted General surgery Service, Dr. Alexandra scheduled appendectomy Diet NPO and clears as tolerated IV fluids Hep-Lock postprocedure wants tolerating diet Continue Empiric antibiotic therapy with Zosyn Pain management analgesia with morphine we will add p.o. Tylenol No. 3 as needed Encourage early ambulation and deep breathing exercise. Out of bed to chair with meals GI prophylaxis, famotidine DVT prophylaxis, Marcos's and SCDs avoid anticoagulation at this time due to impending surgical evaluation ATTESTATION BY PHYSICIAN I have seen and examined the patient. I reviewed the documentation, medical decision making, and treatment plan as noted by the mid-level provider above. I agree with the findings and plan of care. Rosalia Dietrich MD, ELIZABETH NP Jan 13, 2025 12:25
[2025-01-13] MEDS ORDERED: GLYCOPYRROLATE 0.2 MG/ML 5 ML VIAL ONE (12:45)
[2025-01-13] MEDS ORDERED: NEOSTIGMINE METHYLSULFATE 1MG/ML IV ONE (12:45)
--- NOTE | 2025-01-13 12:53 | OP ---
Operative Note: DATE OF PROCEDURE: 01/13/25 SURGEON: ANKIT CAMACHO MD EM PHYSICIAN: Juan Carlos Smyth ANESTHESIA: General ANESTHESIOLOGIST/MINING AND QUARRYING MACHINERY REPAIRER: Keron GO PREOPERATIVE DIAGNOSIS: Acute appendicitis POSTOPERATIVE DIAGNOSIS: Acute appendicitis SYNOPSIS: Acute non perforated appendicitis, omental adhesions in the lower anterior abdominal wall PROCEDURE: Laparoscopic appendectomy, lysis of adhesions ESTIMATED BLOOD LOSS: 15 mL INDICATIONS FOR PROCEDURE: This is a 64-year-old female patient who presented with RLQ abdominal pain. CT scan of the abdomen and pelvis done showed appendicitis. Due to their symptoms, labs, clinical exam and imaging findings, a laparoscopic appendectomy was indicated. Informed consent was obtained prior to surgery. We discussed the risks of the procedure including but not limited to bleeding, wound infection, recurrent appendicitis, abscess, small bowel obstruction and injury to bowel. DESCRIPTION OF PROCEDURE: The patient was taken to the operating room and placed on the operating table in supine position. Next, general anesthesia was induced and they were intubated. A ochoa was placed to decompress the bladder. Their abdomen was prepped and draped in a sterile fashion. Afterwards, a time-out was called. The patient's identity, procedure, preoperative antibiotics and SCDs were all confirmed. I insufflated the abdominal cavity with a Veress needle. I gained access into the intra- abdominal cavity through a 5-mm left upper quadrant incision using a 5-mm Optiview port with a 5 mm 0-degree scope. I placed 2 additional ports in the following configuration: a 12-mm port in the left abdomen, and a 5-mm port in the suprapubic area. I inspected the abdominal cavity. She had omental adhesions in the lower abdominal wall that I had to take down with the LigaSure device. I placed an additional 5 mm port in the right upper quadrant to facilitate adhesiolysis. I saw an acutely inflammed appendix. The appendix was not perforated. I used a Chloe dissector to create a window at the base of the appendix. I stapled across the base of the appendix. I used a LigaSure to take down the mesoappendix. The appendix was placed in a specimen bag and removed from the body. It was sent off as specimen. The staple line was inspected. No active bleeding was seen. The fascia of the 12 mm port was closed with an 1-0 Vicryl suture using a Wolf-Amisha closure device. The pneumoperitoneum was evacuated. Skin incisions were closed with medardo. 0.25% Marcaine with epinephrine was injected into the incisions and sterile dressings were applied. Sponge, needle, instrument counts were accurate. The patient tolerated the procedure and was extubated and taken to recovery room in stable condition. ANKIT CAMACHO MD Jan 13, 2025 12:53
[2025-01-13] MEDS ORDERED: TRAM50TA4 PO (12:59)
[2025-01-13] MEDS ORDERED: LIDO1ADH71 TP (12:59)
[2025-01-13] MEDS ORDERED: SIME80TA13 PO (12:59)
[2025-01-13] MEDS: SIMETHICONE 80 MG TAB.CHEW PO SCH (13:00)
[2025-01-13] MEDS ORDERED: PoTASSium chl 10% ELIXIR 20MEQ 20 MEQ/15 ML UDCUP PO PRN (13:30)
--- NOTE | 2025-01-13 14:09 | NUR ---
REPORT TAKEN FROM CASSIDY RN. PATIENT ARRIVED BACK TO THE UNIT. NO SIGNS OF DISTRESS. PATIENT IS STILL DROWSY AT THIS TIME. POST OP VITALS STARTED. SCDS AND FLUIDS CONNECTED BACK TO PATIENT. VITALS STABLE AT THIS TIME. WILL MONITOR PATIENT.
--- NOTE | 2025-01-13 15:30 | NUR ---
PATIENT FULLY AWAKE TO START IS. CALLED TO RT AND NO ANSWER. WILL CONTINUE TO TRY AND REACH
--- NOTE | 2025-01-13 15:33 | NUR ---
PATIENT AMBULATED TO THE RESTROOM AND BACK TO BED. ENCOURAGED PATIENT TO TRY AND WALK TO THE DOOR AND BACK. PATIENT STATES SHES STILL A LITTLE DROWSY AND WILL TRY LATER.
--- NOTE | 2025-01-13 17:55 | NUR ---
PATIENT AMBULATED FROM BED TO RESTROOM. SECOND ATTEMPT TO ENCOURAGE PATIENT TO AMBULATE. PRE-MEDICATED THE PATIENT EARLIER SO SHE WOULDN'T BE IN SO MUCH PAIN AMBULATING. PATIENT STILL STATING THAT SHE IS DROWSY AND WILL TRY LATER.
[2025-01-13] MEDS: PoTASSium chloRIDE 20MEQ ER 20 MEQ ERTAB PO PRN (20:05)
--- NOTE | 2025-01-13 20:05 | NUR ---
MEDS PT IS UP AND AMBULATING IN THE ROOM, TOLERATING ACTIVITY WELL. CLAIMS SHE HAD NOT PASSED GAS NOR BURPED YET. COMPLAINTS OF POST OP PAINS. SHIFT ASSESSMENT DONE, PLEASE REFER TO CHART. MEDICATED WITH TORADOL IM FOR PAINS. DUE MEDS ADMINISTERED, TOLERATED WELL. PT TOLERATING CLEAR LIQUID DIET WELL. PLACED BACK ON IVF AND IV ABX INFUSION. ENCOURAGED AMBULATION. WILL RE-ASSESS PT.
--- NOTE | 2025-01-13 23:35 | NUR ---
IS CALLED RT, SPOKE WITH RODOLFO AND INFORMED NEED TO START IS ON PT. RODOLFO STATED WILL BRING IS TO PT.
[2025-01-14 03:56] VITALS: BP 141/81; PULSE 68; RESP 18; TEMP 98.4
--- NOTE | 2025-01-14 05:29 | NUR ---
ROUNDS PT RESTING IN BED. STILL NO PASSAGE OF GAS NOR BURPING REPORTED. CLAIMS OF MILD POST OP PAINS BUT DENIES NEED FOR ANALGESIA. KEPT RESTED AND COMFORTABLE IN BED. CALL LIGHT WITHIN REACH. FOR MORE CARE.
[2025-01-14 05:51] LABS: IMMATURE GRANULOCYTE ABSOLUTE 0.03 K/uL (0-1); NUCLEATED RED BLOOD CELLS 0.0 % (0.0-0.19); PLATELET COUNT (AUTO) 213 K/uL (130-400); RED BLOOD CELL COUNT(AUTO) 3.93 MIL/uL (4.00-5.50); RED CELL DISTRIBUTION WIDTH 12.2 % (11.0-15.5); WHITE BLOOD COUNT (AUTO) 8.9 K/uL (4.8-10.8)
[2025-01-14 06:06] LABS: ASPARTATE AMINOTRANSFERASE 21.0 U/L (10-37); CREATININE 0.8 mg/dL (0.5-1.0); GLOMERULAR FILTR. RATE CALC 83.0 mL/min (>90); GLUCOSE,RANDOM 113.0 mg/dL (70-105); SODIUM SERUM 138.0 mmol/L (136-145); TOTAL PROTEIN, SERUM 6.1 g/dL (6.0-8.3); UREA NITROGEN, BLOOD 8.0 mg/dL (7-18)
[2025-01-14 08:00] VITALS: O2SAT 98
--- NOTE | 2025-01-14 08:00 | NUR ---
ON INITIAL PAIN ASSESSMENT PATIENT STATES PAIN THAT RADIATES FROM LEFT UPPER QUADRANT TO LEFT SHOULDER. EDUCATED THE PATIENT ON THE IMPORTANCE OF AMBULATING POST OPERATIVELY. AFTER EDUCATING OFFERED PATIENT PAIN MEDICATION. PATIENT REFUSED. WILL MONITOR AND HELP CONTINUING TO EDUCATE THE PATIENT ON AMBULATING AND MONITOR PAIN.
[2025-01-14 08:16] VITALS: BP 121/88; PULSE 61; RESP 19; TEMP 98.3
[2025-01-14] MEDS: LIDOCAINE 4% ADH..PATCH TP SCH (09:00)
--- NOTE | 2025-01-14 09:45 | NUR ---
PATIENT AMBULATED FROM ROOM TO THE HALLWAY AND BACK TO ROOM.
--- NOTE | 2025-01-14 10:23 | NUR ---
PATIENT AMBULATING AROUND THE ROOM. PATIENT SAID SHE WAS GOING TO ASK HER SON TO BRING FOOD FROM THE OUTSIDE. EDUCATED PATIENT ON THE IMPORTANCE OF FOLLOWING HOSPITAL DIET REGIMEN. EXPLAINED WHY WE ADVANCE TOLERATED AND THAT SHE WOULD BE RECEIVING A SOFT BLAND DIET FOR LUNCH. PATIENT VERBALIZED UNDERSTANDING.
[2025-01-14 12:00] VITALS: BP 139/84; PULSE 75; RESP 19; TEMP 98.3
--- NOTE | 2025-01-14 13:59 | DS ---
Discharge Summary Hospital Course Summary: Patient reports that she came to the emergency department with a chief complaint of abdominal pain. Onset was three days ago. Location is right lower quadrant and right upper quadrant. Duration is on and off. Character is described as, initially was like burning and over the last three days as progressed into cramping. There was no alleviating factors. Symptoms are aggravated with movement. Patient reports associated nausea without vomiting. Today in the emergency department labs are unremarkable, CT of abdomen and pelvis shows acute appendicitis. Emergency room physician consulted general surgeon on-call, Dr. Camacho who requested patient be admitted under hospitalist service. 01/13/25 patient is scheduled for appendectomy today. Encourage early ambulation and deep breathing exercise postprocedure. Denied chest pain or shortness for breath. 01/14/2025 STATUS POST DAY ONE APPENDECTOMY PATIENT IS ELEVATING WITH PAIN TO INCISION SITE. PATIENT IS TOLERATING DIET NO NAUSEA NO VOMITING. PATIENT WE WILL BE DISCHARGED WITH LIDOCAINE PATCH TO BE APPLY POSTOPERATIVE INCISION AND TO CONTINUE WITH SIMETHICONE 80 MG P.O.4 TIMES A DAY FOR POSTOP GAS PAIN. PATIENT IS CLINICALLY STABLE ADVISED NO HEAVY LIFTING GREATER THAN 10 LB FOR FOUR WEEKS KEEP INCISIONS CLEAN AND DRY USE ABDOMINAL BINDER WHEN OUT OF BED. SHE WAS ALSO ADVISED TO CONTINUE IS USAGE WHILE AWAKE IN AMBULATION AT HOME. FOLLOW-UP WITH SURGEON ONE-WEEK Procedure(s): Operative Note: DATE OF PROCEDURE: 01/13/25 SURGEON: ANKIT CAMACHO MD HALL TENDER: Juan Carlos Smyth ANESTHESIA: General ANESTHESIOLOGIST/EASTERN PHILOSOPHY PROFESSOR: Keron GO PREOPERATIVE DIAGNOSIS: Acute appendicitis POSTOPERATIVE DIAGNOSIS: Acute appendicitis SYNOPSIS: Acute non perforated appendicitis, omental adhesions in the lower anterior abdominal wall PROCEDURE: Laparoscopic appendectomy, lysis of adhesions ESTIMATED BLOOD LOSS: 15 mL INDICATIONS FOR PROCEDURE: This is a 64-year-old female patient who presented with RLQ abdominal pain. CT scan of the abdomen and pelvis done showed appendicitis. Due to their symptoms, labs, clinical exam and imaging findings, a laparoscopic appendectomy was indicated. Informed consent was obtained prior to surgery. We discussed the risks of the procedure including but not limited to bleeding, wound infection, recurrent appendicitis, abscess, small bowel obstruction and injury to bowel. DESCRIPTION OF PROCEDURE: The patient was taken to the operating room and placed on the operating table in supine position. Next, general anesthesia was induced and they were intubated. A ochoa was placed to decompress the bladder. Their abdomen was prepped and draped in a sterile fashion. Afterwards, a time-out was called. The patient's identity, procedure, preoperative antibiotics and SCDs were all confirmed. I insufflated the abdominal cavity with a Veress needle. I gained access into the intra- abdominal cavity through a 5-mm left upper quadrant incision using a 5-mm Optiview port with a 5 mm 0-degree scope. I placed 2 additional ports in the following configuration: a 12-mm port in the left abdomen, and a 5-mm port in the suprapubic area. I inspected the abdominal cavity. She had omental adhesions in the lower abdominal wall that I had to take down with the LigaSure device. I placed an additional 5 mm port in the right upper quadrant to facilitate adhesiolysis. I saw an acutely inflammed appendix. The appendix was not perforated. I used a Chloe dissector to create a window at the base of the appendix. I stapled across the base of the appendix. I used a LigaSure to take down the mesoappendix. The appendix was placed in a specimen bag and removed from the body. It was sent off as specimen. The staple line was inspected. No active bleeding was seen. The fascia of the 12 mm port was closed with an 1-0 Vicryl suture using a Wolf-Amisha closure device. The pneumoperitoneum was evacuated. Skin incisions were closed with medardo. 0.25% Marcaine with epinephrine was injected into the incisions and sterile dressings were applied. Sponge, needle, instrument counts were accurate. The patient tolerated the procedure and was extubated and taken to recovery room in stable condition. ANKIT CAMACHO MD Jan 13, 2025 12:53 Assessment/Plan: DISCHARGD DX'S; Acute appendicitis, POA S/P APPENDECTOMY Hypertension] PLAN: [ ] ADMISSION DATE: 01/12/2025 DISCHARGE DATE: 01/14/2025 DISPOSITION: HOME CONDITION: STABLE CIGARETTE INSPECTOR(S): GENERAL SURGEON FOLLOW UP APPOINTMENT(S): POSTOPERATIVE FOLLOW-UP DR. CAMACHO ONE-WEEK PROCEDURES: APPENDECTOMY IMAGING (S) REPORT ATTACHED TO SUMMARY : CT ABDOMEN PELVIS MICROBIOLOGY: REPORT ATTACHED TO SUMMARY; NONE ACTIVITY: AD MELISSA HOME MEDICATIONS REMAIN THE SAME CHANGES ON HOME MEDICATIONS NONE NEW MEDICATIONS SEE BELOW TEACHING: ADVISED NO HEAVY LIFTING GREATER THAN 10 LB. KEEP INCISIONS CLEAN DRY USE ABDOMINAL BINDER WHILE AMBULATING. EMERGENCY INSTRUCTIONS: THE PATIENT WAS INSTRUCTED TO PRESENT TO THE NEAREST EMERGENCY DEPARTMENT OR CALL 911 SHOULD THEIR SYMPTOMS RETURN OR WORSEN. Discharge Instructions: REASON: Abdominal Pain, rlq ORDERING PHYSICIAN: DOROTHY BRASWELL PROCEDURE: ABD PEL W - CT ABDOMEN/PELVIS W/CONTRAST ADDENDUM REPORT ADDENDUM: Results were shared by telephone at 11:52pm on 01/12/25 and acknowledged by Janis Arreola /[place] EXAM: CT Abdomen and Pelvis with IV Contrast CLINICAL HISTORY: The patient presents with right lower quadrant abdominal pain. TECHNIQUE: Axial computed tomography images of the abdomen and pelvis with intravenous contrast. CONTRAST: Administered intravenously. COMPARISON: Compared to prior CT abdomen and pelvis dated July 18, 2018. FINDINGS: LUNG BASES: The lung bases appear clear. No pleural effusions are seen. LIVER: The liver is enlarged measuring approximately 17.4 cm in craniocaudal span. A subcapsular calcified granuloma measuring 0.5 cm is seen in the right lobe. GALLBLADDER AND BILE DUCTS: The gallbladder appears within normal limits. No radioopaque gallstones are seen. No biliary ductal dilatation is evident. PANCREAS: Unremarkable. SPLEEN: Unremarkable. ADRENAL GLANDS: Unremarkable. KIDNEYS, URETERS, AND BLADDER: There is a left renal cyst in the interpolar region measuring 1.2 x 1.2 x 1.2 cm. No hydronephrosis or hydroureter. 0.3 cm calculus in the lower calyx of the right kidney. The urinary bladder is incompletely distended at the time of examination, limiting evaluation for wall thickening. In the appropriate clinical setting, mild cystitis cannot be excluded. STOMACH AND BOWEL: Colonic diverticulosis without evidence of diverticulitis. Unremarkable appearance of the stomach and small bowel. No evidence of bowel obstruction. No evidence suggesting enteritis or colitis. APPENDIX: The appendix appears thickened measuring approximately 1.2 cm with an appendicolith at the base measuring approximately 0.6 cm, along with minimal periappendiceal fat stranding, concerning for acute appendicitis. PERITONEUM: No free fluid. No free air. LYMPH NODES: No lymphadenopathy is evident. REPRODUCTIVE: The uterus and both ovaries are unremarkable. VASCULATURE: No evidence of abdominal aortic aneurysm. BONES: Multilevel mild degenerative changes in the spine. No acute osseous pathology is evident. IMPRESSION: Acute appendicitis is evident. This is a new finding compared to the previous CT dated 07/18/2018. The remaining findings are grossly unchanged. Hepatomegaly with a subcapsular hepatic calcified granuloma in the right lobe. Non-obstructive right renal calculus. Left renal interpolar cyst. Colonic diverticulosis without diverticulitis. Incompletely distended urinary bladder; cystitis cannot be excluded. Recommend clinical correlation. Home Medications: Active Scripts Tramadol Hcl (Tramadol HCl) 50 Mg Tablet, 50 MG PO Q4H PRN for MODERATE PAIN (4- 6), #15 TAB Prov:JANICEJUNE A 01/13/25 New Medications: Lidocaine (Lidocaine Pain Relief) 4 % Adh..patch 1 EACH TP DAILY for postop incision pain, #15 ADH.PATCH apply to left lower abdomen near largest incision Simethicone (Mylicon/Mylanta Gas) 80 Mg Chew 80 MG PO QID for postop gas pain, #30 TAB.CHEW for gas pain take around the clock for 7 days Tramadol Hcl (Tramadol HCl) 50 Mg Tablet 50 MG PO Q4H PRN for MODERATE PAIN (4-6), #15 TAB Time spent arranging discharge: 31-60 minutes ATTESTATION BY PHYSICIAN I have seen and examined the patient. I reviewed the documentation, medical decision making, and treatment plan as noted by the mid-level provider above. I agree with the findings and plan of care. Rosalia Dietrich MD, ELIZABETH NP Jan 14, 2025 13:59
--- NOTE | 2025-01-14 15:22 | NUR ---
DC PLAN VISITED WITH PATIENT. PATIENT LIVES WITH MOM. INDEPENDENT ABLE TO PERFORM ADL'S. PATIENT HAS NO SERVICES OR DME'S. FEELS SAFE TO RETURN HOME. Addendum: 01/14/25 at 1523 by SABINA VERONICA RN CM Amended: Links added.
[2025-01-14 16:00] VITALS: BP 136/85; PULSE 67; RESP 19; TEMP 98
--- NOTE | 2025-01-14 16:54 | HMCIMG ---
EXAM: CR Abdomen, 2 View. CLINICAL HISTORY: ABDOMINAL PAIN LEFT UPPER QUADRANT COMPARISON: None provided. FINDINGS: BOWEL: The bowel gas pattern is within normal limits. PERITONEUM/SOFT TISSUES: No free air evident. No pathologic appearing calcification. BONES: No aggressive appearing osseous lesion seen. IMPRESSION: The bowel gas pattern is within normal limits. /[place]
--- NOTE | 2025-01-14 18:05 | NUR ---
DISCHARGE EDUCATION GIVEN TO PATIENT REGARDING FOLLOW UP APPOINTMENT. IV CATHETER REMOVED AND INTACT. PT VERBALIZED UNDERSTANDING. PENDING RIDE TO ARRIVE. Addendum: 01/14/25 at 1835 by BENSON JARA LVN LVN PATIENT TAKEN DOWN STAIRS VIA WHEELCHAIR TO PRIVATE CAR. NO FURTHER COMMENTS.
== END 2025-01-14 18:35 | disposition home or self-care (01) | DRG 399 ==
LOC: EDH 20:12 → EDHIP 23:07 → 4DH 01-13 00:22
PROVIDERS: ADMIT Internal Medicine; ATTEND Internal Medicine
PROC: 0DTJ4ZZ Resection of Appendix, Percutaneous Endoscopic Approach (ICD-10-PCS; principal; 2025-01-13 11:15)
DX: K35.80 Unspecified acute appendicitis (principal); I10 Essential (primary) hypertension; K66.0 Peritoneal adhesions (postprocedural) (postinfection); K56.41 Fecal impaction; K57.30 Diverticulosis of large intestine without perforation or abscess without bleeding; N20.0 Calculus of kidney; Z51.5 Encounter for palliative care
CPT/HCPCS: 36415; 74018; 74177; 80048; 80053; 80076; 81003; 82550; 82948; 83690; 83735; 84100; 84484; 85025; 85610; 85730; 86850; 86900; 86901; 87040; 93005; 99285; G0378; J1885; J2003; J2250; J2371; J2405; J2543; J2704; J2710; J3010; J3490; J7030; J7120; Q9967; A4215; A4216; A4222; A4223; A4649; A4930; J0665